=== PATIENT | male | born 1935 | race Caucasian/White ===

== ENCOUNTER 2017-11-01 10:20 | Observation (INO) | payer MEDICARE, OTHER ==
[2017-11-01] MEDS: METHYLPREDNISOLONE 125 MG INJ IV (11:46)
[2017-11-01 11:52] LABS: ADD MAN DIFF? NO
[2017-11-01 11:54] LABS: WHITE BLOOD COUNT 7.2 10^3/ul (4.8-10.8)
[2017-11-01 11:54] LABS: ABNORMAL IP MESSAGE 1; BASOPHILS % 0.6 % (0.0-2.0); EOSINOPHILS # 0.3 10^3/ul (0.0-0.5); EOSINOPHILS % 4.1 % (0.0-7.0); HEMATOCRIT 30.3 % (42.0-52.0); HEMOGLOBIN 9.3 g/dl (14.0-18.0); LYMPHOCYTES # 0.5 10^3/ul (0.8-2.9); MEAN CORPUSCULAR HEMOGLOBIN 26.8 pg (29.0-33.0); MEAN CORPUSCULAR HGB CONC 30.7 g/dl (32.0-37.0); MEAN CORPUSCULAR VOLUME 87.3 fl (82.0-101.0); MEAN PLATELET VOLUME 10.6 fl (7.4-10.4); MONOCYTE # 0.6 10^3/ul (0.3-0.9); MONOCYTES % 7.6 % (0.0-11.0); NEUTROPHIL # 5.8 10^3/ul (1.6-7.5); NEUTROPHILS % 79.9 % (39.0-77.0); PLATELET COUNT 337 10^3/UL (140-415); POSITIVE DIFF @See below; RED BLOOD COUNT 3.47 10^6/ul (4.70-6.10); RED CELL DISTRIBUTION WIDTH 16.6 % (11.5-14.5)
[2017-11-01] MEDS: ALBUTEROL 0.083% (NEB) 2.5 MG/3 ML AMP INH (11:58)
[2017-11-01 12:16] LABS: ALANINE AMINOTRANSFERASE 15 IU/L (13-69); ALBUMIN 3.6 g/dl (3.3-4.9); ALBUMIN/GLOBULIN RATIO 0.81; ALKALINE PHOSPHATASE 71 IU/L (42-121); ANION GAP 14 (8-16); ASPARTATE AMINO TRANSFERASE 12 IU/L (15-46); BILIRUBIN,INDIRECT 0.1 mg/dl (0-1.1); BILIRUBIN,TOTAL 0.1 mg/dl (0.2-1.3); BLOOD UREA NITROGEN 47 mg/dl (7-20); CALCIUM 9.4 mg/dl (8.4-10.2); CARBON DIOXIDE 25 mmol/L (21-31); CHLORIDE 111 mmol/L (97-110); CREATININE 2.63 mg/dl (0.61-1.24); GLUCOSE 84 mg/dl (70-220); POTASSIUM 4.5 mmol/L (3.5-5.1); SODIUM 145 mmol/L (135-144)
[2017-11-01 12:28] LABS: B-TYPE NATRIURETIC PEPTIDE 1560 PG/ML (0-450); TROPONIN-I < 0.012 ng/ml (0.000-0.120)
[2017-11-01] MEDS ORDERED: ONDANSETRON 4 MG INJ IV ×2 (14:00→15:30)
[2017-11-01] MEDS ORDERED: ACETAMINOPHEN 325 MG TAB PO ×3 (14:00→15:30)
[2017-11-01] MEDS: FUROSEMIDE 20 MG INJ IV (14:58)
[2017-11-01] MEDS ORDERED: DOCUSATE SODIUM 100 MG CAP PO (15:30)
[2017-11-01] MEDS ORDERED: HYDROCODONE/APAP (5/325) TAB PO (15:30)
[2017-11-01] MEDS ORDERED: NACL 0.9% 3 ML SYG IV (15:30)
[2017-11-01] MEDS ORDERED: MAGNESIUM HYDROXIDE 30ML CUP PO ×2 (15:30)
[2017-11-01 17:13] LABS: INR 2.31
[2017-11-01 20:55] LABS: OCCULT BLOOD STOOL NEGATIVE (NEGATIVE)
[2017-11-01] MEDS: DOCUSATE SODIUM 100 MG CAP PO (21:00)
[2017-11-01] MEDS: WARFARIN 3 MG TAB PO (21:01)
[2017-11-01] MEDS: TAMSULOSIN (SR) 0.4 MG CAP PO (21:01)
[2017-11-01] MEDS: SOD CHLORIDE 0.9% 1,000 ML IV (21:02)
[2017-11-02] MEDS: SOD CHLORIDE 0.9% 1,000 ML IV ×2 (05:49→20:02)
[2017-11-02 06:00] LABS: ADD MAN DIFF? NO
[2017-11-02] MEDS ORDERED: PANTOPRAZOLE (EC) 40 MG TAB PO (06:00)
[2017-11-02 06:04] LABS: WHITE BLOOD COUNT 11.4 10^3/ul (4.8-10.8)
[2017-11-02 06:04] LABS: ABNORMAL IP MESSAGE 1; BASOPHILS % 0.1 % (0.0-2.0); LYMPHOCYTES # 0.4 10^3/ul (0.8-2.9); LYMPHOCYTES % 3.9 % (15.0-51.0); MEAN CORPUSCULAR HEMOGLOBIN 26.9 pg (29.0-33.0); MEAN CORPUSCULAR VOLUME 86.6 fl (82.0-101.0); MEAN PLATELET VOLUME 10.5 fl (7.4-10.4); MONOCYTE # 0.3 10^3/ul (0.3-0.9); MONOCYTES % 2.6 % (0.0-11.0); NEUTROPHIL # 10.5 10^3/ul (1.6-7.5); NEUTROPHILS % 92.6 % (39.0-77.0); PLATELET COUNT 350 10^3/UL (140-415); POSITIVE DIFF @See below; RED BLOOD COUNT 3.35 10^6/ul (4.70-6.10); RED CELL DISTRIBUTION WIDTH 16.6 % (11.5-14.5)
[2017-11-02 06:08] LABS: RETICULOCYTE RBC 3.32
[2017-11-02 06:08] LABS: RETICULOCYTE COUNT # 0.048 X10^6 (0.020-0.110); RETICULOCYTE COUNT % 1.4 % (0.5-1.5)
[2017-11-02] MEDS: PANTOPRAZOLE (EC) 40 MG TAB PO (06:12)
[2017-11-02 06:49] LABS: HEMOGLOBIN A1C 5.8 % (0-5.9)
[2017-11-02 07:11] LABS: ALANINE AMINOTRANSFERASE 11 IU/L (13-69); ALBUMIN 3.5 g/dl (3.3-4.9); ALBUMIN/GLOBULIN RATIO 0.83; ALKALINE PHOSPHATASE 73 IU/L (42-121); ANION GAP 17 (8-16); ASPARTATE AMINO TRANSFERASE 15 IU/L (15-46); BLOOD UREA NITROGEN 50 mg/dl (7-20); CALCIUM 9.7 mg/dl (8.4-10.2); CARBON DIOXIDE 24 mmol/L (21-31); CHLORIDE 112 mmol/L (97-110); CHOL/HDL RATIO 4.3 RATIO; CHOLESTEROL 130 mg/dl (100-200); CREATININE 2.44 mg/dl (0.61-1.24); GLUCOSE 120 mg/dl (70-220); HDL CHOLESTEROL 30 mg/dl (31-75); LDL CHOLESTEROL,CALCULATED 91 mg/dl; POTASSIUM 4.6 mmol/L (3.5-5.1); SODIUM 148 mmol/L (135-144); TOTAL PROTEIN 7.7 g/dl (6.1-8.1); TRIGLYCERIDES 47 mg/dl (0-149)
[2017-11-02 07:22] LABS: THYROID STIMULATING HORMONE 0.352 MIU/L (0.465-4.680)
[2017-11-02 07:26] LABS: IRON 44 ug/dl (35-150)
[2017-11-02 07:35] LABS: % IRON SATURATION 15 % SAT (22-52); TOTAL IRON BINDING CAPACITY 294 ug/dl (241-421)
[2017-11-02] MEDS: DOCUSATE SODIUM 100 MG CAP PO ×2 (08:58→20:31)
[2017-11-02] MEDS: AMLODIPINE 10 MG TAB PO (08:59)
[2017-11-02] MEDS: LORATADINE 10 MG TAB PO (09:05)
[2017-11-02] MEDS: CITALOPRAM 20 MG TAB PO (11:06)
[2017-11-02] MEDS: TAMSULOSIN (SR) 0.4 MG CAP PO (20:31)
[2017-11-02] MEDS: CYANOCOBALAMIN 1000 MCG INJ IM (20:35)
[2017-11-02] MEDS: WARFARIN 3 MG TAB PO (21:58)
[2017-11-03] MEDS: SOD CHLORIDE 0.9% 1,000 ML IV (01:57)
[2017-11-03] MEDS: PANTOPRAZOLE (EC) 40 MG TAB PO (06:43)
[2017-11-03 07:33] LABS: ADD MAN DIFF? NO
[2017-11-03 07:41] LABS: BASOPHILS % 0.4 % (0.0-2.0); EOSINOPHILS # 0.1 10^3/ul (0.0-0.5); EOSINOPHILS % 1.3 % (0.0-7.0); HEMATOCRIT 28.5 % (42.0-52.0); HEMOGLOBIN 8.8 g/dl (14.0-18.0); LYMPHOCYTES # 1.1 10^3/ul (0.8-2.9); LYMPHOCYTES % 10.6 % (15.0-51.0); MEAN CORPUSCULAR HEMOGLOBIN 26.8 pg (29.0-33.0); MEAN CORPUSCULAR HGB CONC 30.9 g/dl (32.0-37.0); MEAN CORPUSCULAR VOLUME 86.9 fl (82.0-101.0); MEAN PLATELET VOLUME 10.7 fl (7.4-10.4); MONOCYTE # 0.6 10^3/ul (0.3-0.9); MONOCYTES % 5.8 % (0.0-11.0); NEUTROPHIL # 8.3 10^3/ul (1.6-7.5); NEUTROPHILS % 81.2 % (39.0-77.0); PLATELET COUNT 324 10^3/UL (140-415); RED BLOOD COUNT 3.28 10^6/ul (4.70-6.10); RED CELL DISTRIBUTION WIDTH 16.8 % (11.5-14.5)
[2017-11-03 07:41] LABS: WHITE BLOOD COUNT 10.2 10^3/ul (4.8-10.8)
[2017-11-03 07:57] LABS: INR 3.13; PROTIME 33.1 Sec (11.9-14.9); PT RATIO 2.6
[2017-11-03 07:58] LABS: ANION GAP 15 (8-16); BLOOD UREA NITROGEN 48 mg/dl (7-20); CALCIUM 8.8 mg/dl (8.4-10.2); CARBON DIOXIDE 24 mmol/L (21-31); CHLORIDE 112 mmol/L (97-110); CREATININE 2.25 mg/dl (0.61-1.24); GLUCOSE 79 mg/dl (70-220); POTASSIUM 4.6 mmol/L (3.5-5.1); SODIUM 146 mmol/L (135-144)
[2017-11-03 08:00] LABS: PHOSPHORUS 3.7 mg/dl (2.5-4.9)
[2017-11-03] MEDS: LORATADINE 10 MG TAB PO (09:02)
[2017-11-03] MEDS: CITALOPRAM 20 MG TAB PO (09:02)
[2017-11-03] MEDS: DOCUSATE SODIUM 100 MG CAP PO (09:02)
[2017-11-03] MEDS: CYANOCOBALAMIN 1000 MCG INJ IM (09:02)
[2017-11-03] MEDS: AMLODIPINE 10 MG TAB PO (09:03)
== END 2017-11-03 18:20 | disposition home or self-care (01) ==
LOC: E/R 10:20 → 2NE 13:55
DX: N17.9 Acute kidney failure, unspecified (principal); E86.0 Dehydration; I48.91 Unspecified atrial fibrillation; D50.9 Iron deficiency anemia, unspecified; I10 Essential (primary) hypertension; F03.90 Unspecified dementia, unspecified severity, without behavioral disturbance, psychotic disturbance, mood disturbance, and anxiety; Z87.891 Personal history of nicotine dependence; Z79.01 Long term (current) use of anticoagulants; F32.9 Major depressive disorder, single episode, unspecified; N40.0 Benign prostatic hyperplasia without lower urinary tract symptoms; E53.8 Deficiency of other specified B group vitamins
CPT/HCPCS: 36415; 71045; 76775; 80048; 80053; 80061; 82270; 82607; 83036; 83540; 83735; 83880; 84100; 84443; 84484; 85025; 85045; 85610; 93005; 93306; 94664; 96374; 97161; 99285-25; G0378